=== PATIENT | male | born 1970 | race African-American/Black ===

== ENCOUNTER 2023-02-03 12:27 | Emergency (ER) | payer MEDICAID ==
[~2023-02-03] VITALS: Ht 180.3 cm; Wt 127.0 kg
[2023-02-03 12:36] VITALS: BP 123/83; PULSE 63; RESP 20; TEMP 98.7; O2SAT 98
[2023-02-03] MEDS ORDERED: TETR-80 OP ×2 (14:33)
[2023-02-03] MEDS ORDERED: CARB15DR2 EACHEYE (14:38)
== END 2023-02-03 16:07 | disposition home or self-care (01) ==
LOC: ER 12:27
DX: H00.016 Hordeolum externum left eye, unspecified eyelid (principal); E11.9 Type 2 diabetes mellitus without complications; I10 Essential (primary) hypertension
CPT/HCPCS: 99282